=== PATIENT | female | born 1965 | race Caucasian/White ===

== ENCOUNTER 2016-05-14 11:55 | Emergency (ER) | payer BC, MEDICARE ==
[2016-05-14 14:12] LABS: HEMOGLOBIN 16.1 gm/dl (12.3-15.3); RED BLOOD COUNT 5.32 M/UL (4.00-5.10); WHITE BLOOD COUNT 4.2 K/UL (4.5-11.0)
[2016-05-14 14:30] LABS: BUN/CREATININE RATIO 23 (0-10)
== END 2016-05-14 20:28 | disposition home or self-care (01) ==
LOC: ER1 11:55
PROVIDERS: Specialist/Technologist Athletic Trainer
DX: J18.9 Pneumonia, unspecified organism (principal); K85.90 Acute pancreatitis without necrosis or infection, unspecified; R73.9 Hyperglycemia, unspecified; R74.0 Nonspecific elevation of levels of transaminase and lactic acid dehydrogenase [LDH]; R11.2 Nausea with vomiting, unspecified; Z90.49 Acquired absence of other specified parts of digestive tract; Z88.5 Allergy status to narcotic agent
CPT/HCPCS: 36415; 71010; 80053; 81001; 82009; 82550; 82800; 83605; 83690; 85025; 85379; 86403; 93005; 96361; 96374; 96375; 96376; 99285; C9113; J2405; J2550; J7050; Q9963

== ENCOUNTER 2016-05-19 16:58 | Inpatient (IN) | payer BC, MEDICARE ==
[~2016-05-19] VITALS: Ht 162.6 cm; Wt 61.2 kg
[2016-05-19] MEDS ORDERED: ZOFRAN4 MG PO (17:51)
[2016-05-19] MEDS ORDERED: IMURAN50 MG PO (17:52)
[2016-05-19] MEDS ORDERED: TRAZODONE HCL100 MG PO (17:54)
[2016-05-19] MEDS ORDERED: ZYPREXA5 MG PO (17:54)
[2016-05-19] MEDS ORDERED: CIMZIA400 MG/2 M SQ (17:56)
[2016-05-19] MEDS ORDERED: LIPITOR TAB 2020 MG PO (17:56)
[2016-05-19] MEDS ORDERED: LANTUS SOL100 UNIT/1 SQ ×2 (18:09→18:10)
[2016-05-19 18:25] LABS: HEMOGLOBIN 14.9 gm/dl (12.3-15.3); RED BLOOD COUNT 4.94 M/UL (4.00-5.10); WHITE BLOOD COUNT 8.5 K/UL (4.5-11.0)
[2016-05-19 18:55] LABS: BUN/CREATININE RATIO 25 (0-10)
[2016-05-20 06:01] LABS: HEMOGLOBIN 13.2 gm/dl (12.3-15.3); WHITE BLOOD COUNT 7.5 K/UL (4.5-11.0)
[2016-05-20 06:04] LABS: RED BLOOD COUNT 4.31 M/UL (4.00-5.10)
[2016-05-20 08:14] LABS: BUN/CREATININE RATIO 30 (0-10)
== END 2016-05-21 15:25 | disposition home or self-care (01) | DRG 190 ==
LOC: MED SURG 4 16:58
PROVIDERS: ADMIT Emergency Medicine
DX: J44.0 Chronic obstructive pulmonary disease with (acute) lower respiratory infection (principal); J18.9 Pneumonia, unspecified organism; K50.90 Crohn's disease, unspecified, without complications; A04.7 Enterocolitis due to Clostridium difficile; Q42.1 Congenital absence, atresia and stenosis of rectum without fistula; J20.9 Acute bronchitis, unspecified; E86.0 Dehydration; E11.65 Type 2 diabetes mellitus with hyperglycemia; I10 Essential (primary) hypertension; E78.5 Hyperlipidemia, unspecified; F17.210 Nicotine dependence, cigarettes, uncomplicated; Z93.3 Colostomy status; Z79.4 Long term (current) use of insulin; Z79.899 Other long term (current) drug therapy; Z88.5 Allergy status to narcotic agent; Z90.710 Acquired absence of both cervix and uterus; Z90.49 Acquired absence of other specified parts of digestive tract; Z80.0 Family history of malignant neoplasm of digestive organs
CPT/HCPCS: 36415; 71010; 80048; 80053; 81001; 82150; 82550; 82553; 82962; 83690; 84484; 85025; 85027; 87045; 87046; 87070; 87205; 93005; 94640; J1650; J1956; J7030

== ENCOUNTER 2020-03-26 15:23 | Emergency (ER) | payer BC ==
[~2020-03-26 15:23] MED LIST: AUGMENTIN 875-1 EACH PO; BENTYL 20MG TAB20 MG PO; CEFDINIR300 MG PO; CEFUROXIME500 MG PO; CIMZIA400 MG/2 M SQ; FLECAINIDE ACET50 MG PO; HYDROCODONE/APAP PO; IBUPROFEN600 MG PO; IMURAN50 MG PO; LANTUS SOL100 UNIT/1 SQ; LIPITOR TAB 2020 MG PO; LODINE CAP 300300 MG PO; LOPRESSOR100 MG PO; MEDROL4 MG PO; NAPROXEN250 MG PO; NORCO 5-325 TA1 EACH PO; PHENAZOPYRIDIN100 MG PO; PHENERGAN 12.12.5 M1 PO; POTASSIUM20 MEQ/11 PO; PRILOSEC OTC20 MG PO; STELARA90 MG/1 ML SQ; TAMBOCOR 100 M100 MG PO; TOPROL XL 100100 MG PO; TOUJEO MAX300 UNIT/1 SC; TOUJEO SQ; TRAZODONE HCL100 MG PO; TUMS300 MG PO; VANCOCIN 125MG/2.5ML PO; VANCOMYCIN HCL125 MG PO; ZOFRAN 4 MG TAB4 MG PO; ZOFRAN ODT 4 MG4 MG PO; ZOFRAN ODT 4 MG4 MG SL; ZOFRAN4 MG PO; ZYPREXA5 MG PO
[2020-03-26 19:26] LABS: HEMOGLOBIN 14.9 gm/dl (12.3-15.3); RED BLOOD COUNT 4.85 M/UL (4.00-5.10)
[2020-03-26 19:40] LABS: BUN/CREATININE RATIO 25 (0-10)
[2020-03-26 19:57] LABS: ADENOVIRUS F 40/41 Not Detected (Negative); ASTROVIRUS Not Detected (Negative); CAMPYLOBACTER Not Detected (Negative); CLOSTRIDIUM DIFFICILE TOX A/B Not Detected (Negative); CRYPTOSPORIDIUM Not Detected (Negative); E.COLI 0157 Not Detected (Negative); ENTAMOEBA HISTOLYTICA Not Detected (Negative); ENTEROAGGREGATIVE E.COLI (EAEC Not Detected (Negative); ENTEROPATHOGENIC E.COLI (EPEC) Not Detected (Negative); ENTEROTOXIGENIC E.COLI (ETEC) Not Detected (Negative); GIARDIA LAMBLIA Not Detected (Negative); NOROVIRUS GI/GII Not Detected (Negative); PLESIOMONAS SHIGELLOIDES Not Detected (Negative); ROTOVIRUS A Not Detected (Negative); SALMONELLA Not Detected (Negative); SAPOVIRUS Not Detected (Negative); SHIG/ENTEROINVAS.ECOLI (EIEC) Not Detected (Negative); SHIGA-LIK TOX.PRO.E.COLI (STEC Not Detected (Negative); VIBRIO Not Detected (Negative); VIBRIO CHOLERAE Not Detected (Negative); YERSINIA ENTEROCOLITICA Not Detected (Negative)
[2020-03-26] MEDS ORDERED: ZOFRAN4 MG PO (22:07)
[2020-03-26] MEDS ORDERED: PREDNISONE50 MG PO (22:07)
[2020-03-26] MEDS ORDERED: AUGMENTIN 875-1 EACH PO (22:07)
== END 2020-03-26 22:24 | disposition home or self-care (01) ==
LOC: ER1 15:23
PROVIDERS: Physician Assistant Medical
DX: R10.84 Generalized abdominal pain (principal); R11.0 Nausea; R19.7 Diarrhea, unspecified; K63.89 Other specified diseases of intestine; I50.9 Heart failure, unspecified; I48.91 Unspecified atrial fibrillation; F17.210 Nicotine dependence, cigarettes, uncomplicated; Z93.3 Colostomy status; Z87.19 Personal history of other diseases of the digestive system; Z88.1 Allergy status to other antibiotic agents; Z88.5 Allergy status to narcotic agent; Z95.0 Presence of cardiac pacemaker; Z90.710 Acquired absence of both cervix and uterus
CPT/HCPCS: 80053; 81001; 82150; 83605; 83690; 85025; 85652; 86140; 87507; 96374; 96375; 99284; J2270; J2405; J7030; Q9967

== ENCOUNTER 2020-06-18 14:44 | Emergency (ER) | payer BC ==
[~2020-06-18 14:44] MED LIST changes: +PREDNISONE50 MG PO
== END 2020-06-18 15:53 | disposition left against medical advice (07) ==
LOC: ER1 14:44
DX: Z53.21 Procedure and treatment not carried out due to patient leaving prior to being seen by health care provider (principal)

== ENCOUNTER 2021-09-24 11:04 | Emergency (ER) | payer BC ==
[2021-09-24] MEDS ORDERED: BENADRYL 50MG C50 MG PO (13:10)
[2021-09-24] MEDS ORDERED: PREDNISONE 20 M20 MG PO (13:10)
[2021-09-24] MEDS ORDERED: PEPCID40 MG PO (13:10)
== END 2021-09-24 13:25 | disposition home or self-care (01) ==
LOC: ER1 11:04
DX: L50.0 Allergic urticaria (principal); T49.8X5A Adverse effect of other topical agents, initial encounter; I10 Essential (primary) hypertension; E78.5 Hyperlipidemia, unspecified; F17.210 Nicotine dependence, cigarettes, uncomplicated; E10.9 Type 1 diabetes mellitus without complications; Z88.5 Allergy status to narcotic agent; Z88.1 Allergy status to other antibiotic agents
CPT/HCPCS: 96372; 99282; J1200; J2930